=== PATIENT | male | born 1945 | race African-American/Black ===

== ENCOUNTER → 2017-12-08 | Outpatient (CLI) | payer MEDICARE, OTHER ==
--- NOTE | 2017-12-08 10:49 | RADIOLOGY REPORT (SQ) ---
EXAM DESCRIPTION: U/S RETROPERITON (RENAL/AORTA) COMPLETED DATE/TIME: 12/08/2017 9:14 am REASON FOR STUDY: CKD N18.9 CHRONIC KIDNEY DISEASE, UNSPECIFIED COMPARISON: None. TECHNIQUE: Dynamic and static grayscale images acquired of the kidneys and bladder and recorded on P ACS. Additional selected color Doppler and spectral images recorded. LIMITATIONS: None. FINDINGS: RIGHT KIDNEY: 8.5 cm in length, smaller compared to the left. No evidence of stones or ma sses, however. No hydronephrosis. LEFT KIDNEY: 10.3 cm. No evidence of stones or mass. No hydronephrosis. BLADDER: No evidence of mass or stones. OTHER FINDINGS: Prostate enlarged, 5 x 5 x 3 cm. IMPRESSION: Prostate enlargement. No renal mass or obstruction. TECHNICAL DOCUMENTATION: JOB ID: [id number] [employer]- All Rights Reserved Reading location - IP/workstation name: [email or web address]
== END ==
LOC: RAD 08:41
PROVIDERS: ATTEND Family Medicine
DX: N18.9 Chronic kidney disease, unspecified (principal); N40.0 Benign prostatic hyperplasia without lower urinary tract symptoms
CPT/HCPCS: 76770

== ENCOUNTER → 2018-03-01 | Outpatient (CLI) | payer MEDICARE, OTHER ==
[2018-03-01 11:44] LABS: HEMATOCRIT 39.3 % (37.9-51.0); HEMOGLOBIN 13.1 g/dL (13.5-17.0); MEAN CORPUSCULAR HEMOGLOBIN 30.3 pg (27.0-33.4); MEAN CORPUSCULAR HGB CONC 33.2 g/dL (32.0-36.0); MEAN CORPUSCULAR VOLUME 91 fl (80-97); PLATELET COUNT 269 10^3/uL (150-450); RED BLOOD COUNT 4.32 10^6/uL (4.35-5.55); RED CELL DISTRIBUTION WIDTH 12.8 % (11.5-14.0); WHITE BLOOD COUNT 4.3 10^3/uL (4.0-10.5)
[2018-03-01 12:03] LABS: ANION GAP 13 (5-19); BLOOD UREA NITROGEN 21 mg/dL (7-20); CALCIUM 10.5 mg/dL (8.4-10.2); CARBON DIOXIDE 25 mmol/L (22-30); CHLORIDE 106 mmol/L (98-107); GLUCOSE 119 mg/dL (75-110); POTASSIUM 4.7 mmol/L (3.6-5.0); SODIUM 144.1 mmol/L (137-145)
[2018-03-01 15:59] LABS: APPEARANCE,URINE CLEAR; BILIRUBIN,URINE NEGATIVE (NEGATIVE); COLOR,URINE YELLOW; GLUCOSE, URINE NEGATIVE (NEGATIVE); KETONES,URINE NEGATIVE (NEGATIVE); LEUKOCYTE ESTERASE,URINE NEGATIVE (NEGATIVE); NITRITE,URINE NEGATIVE (NEGATIVE); PROTEIN,URINE NEGATIVE (NEGATIVE); URINE SPECIFIC GRAVITY 1.017; UROBILINOGEN,URINE NEGATIVE mg/dL (<2.0)
[2018-03-01 16:04] LABS: IRON(TIBC) 49.9 ug/dL (49-181)
== END ==
LOC: OD 11:06
PROVIDERS: ATTEND Internal Medicine Nephrology
DX: N18.3 Chronic kidney disease, stage 3 (moderate) (principal); I12.9 Hypertensive chronic kidney disease with stage 1 through stage 4 chronic kidney disease, or unspecified chronic kidney disease; D64.9 Anemia, unspecified
CPT/HCPCS: 36415; 80048; 81001; 82728; 83540; 83550; 85027

== ENCOUNTER → 2018-04-28 | Outpatient (CLI) | payer MEDICARE, OTHER ==
[2018-04-28 13:08] LABS: ANION GAP 9 (5-19); BLOOD UREA NITROGEN 21 mg/dL (7-20); CALCIUM 10.1 mg/dL (8.4-10.2); CARBON DIOXIDE 29 mmol/L (22-30); CHLORIDE 104 mmol/L (98-107); GLUCOSE 120 mg/dL (75-110); SODIUM 141.5 mmol/L (137-145)
== END ==
LOC: OD 11:22
PROVIDERS: ATTEND Internal Medicine Nephrology
DX: I12.9 Hypertensive chronic kidney disease with stage 1 through stage 4 chronic kidney disease, or unspecified chronic kidney disease (principal); N18.3 Chronic kidney disease, stage 3 (moderate)
CPT/HCPCS: 36415; 80048

== ENCOUNTER → 2018-05-04 | Outpatient (CLI) | payer MEDICARE, OTHER ==
--- NOTE | 2018-05-04 13:12 | RADIOLOGY REPORT (SQ) ---
EXAM DESCRIPTION: MRA ABDOMEN WITHOUT COMPLETED DATE/TIME: 05/04/2018 10:41 am REASON FOR STUDY: N18.3 CHRONIC KIDNEY DISEASE, STAGE 3 (MODERATE)/Q63.8 OTHER SPECIFIED MAEVE N18.3 CHRONIC KIDNEY DISEASE, STAGE 3 (MODERATE) COMPARISON: None. TECHNIQUE: Coronal and Axial imaging with T1 and T2 weighting through the kidneys. 3-D MIPs performe d at the work station. CONTRAST TYPE AND DOSE: Noncontrast study. RENAL FUNCTION: Not applicable. LIMITATIONS: None. FINDINGS: KIDNEYS: Kidneys are of normal size and functionality. OTHER ABDOMINAL ORGANS: No significant finding. BONY STRUCTURES: No significant finding as visualized. VASCULAR STRUCTURES: No significant finding. RIGHT RENAL ARTERY: A single renal artery. Normal without evidence for stenosis. LEFT RENAL ARTERY: A single renal artery. Normal without evidence for stenosis. AORTA, SMA, AND CELIAC AXIS: No significant finding or stenosis. OTHER: No other significant finding. IMPRESSION: NORMAL RIGHT AND LEFT RENAL ARTERIES. TECHNICAL DOCUMENTATION: JOB ID: [id number] [employer]- All Rights Reserved Reading location - IP/workstation name: [email or web address]
== END ==
LOC: RAD 09:59
PROVIDERS: ATTEND Internal Medicine Nephrology
DX: N18.3 Chronic kidney disease, stage 3 (moderate) (principal); Q63.8 Other specified congenital malformations of kidney
CPT/HCPCS: C8901

== ENCOUNTER → 2018-11-29 | Outpatient (CLI) | payer MEDICARE, OTHER ==
[2018-11-29 10:58] LABS: HEMATOCRIT 39.7 % (37.9-51.0); MEAN CORPUSCULAR HEMOGLOBIN 29.7 pg (27.0-33.4); MEAN CORPUSCULAR HGB CONC 32.6 g/dL (32.0-36.0); MEAN CORPUSCULAR VOLUME 91 fl (80-97); PLATELET COUNT 235 10^3/uL (150-450); RED BLOOD COUNT 4.36 10^6/uL (4.35-5.55); RED CELL DISTRIBUTION WIDTH 12.8 % (11.5-14.0)
[2018-11-29 11:16] LABS: ANION GAP 7 (5-19); BLOOD UREA NITROGEN 17 mg/dL (7-20); CALCIUM 9.9 mg/dL (8.4-10.2); CARBON DIOXIDE 28 mmol/L (22-30); CHLORIDE 105 mmol/L (98-107); GLUCOSE 104 mg/dL (75-110); POTASSIUM 4.6 mmol/L (3.6-5.0)
[2018-11-29 12:24] LABS: APPEARANCE,URINE SLIGHTLY-CLOUDY; BILIRUBIN,URINE NEGATIVE (NEGATIVE); COLOR,URINE YELLOW; GLUCOSE, URINE NEGATIVE (NEGATIVE); KETONES,URINE NEGATIVE (NEGATIVE); LEUKOCYTE ESTERASE,URINE NEGATIVE (NEGATIVE); NITRITE,URINE NEGATIVE (NEGATIVE); PROTEIN,URINE NEGATIVE (NEGATIVE); URINE SPECIFIC GRAVITY 1.017; UROBILINOGEN,URINE NEGATIVE mg/dL (<2.0)
== END ==
LOC: OD 09:59
PROVIDERS: ATTEND Internal Medicine Nephrology
DX: I12.9 Hypertensive chronic kidney disease with stage 1 through stage 4 chronic kidney disease, or unspecified chronic kidney disease (principal); N18.3 Chronic kidney disease, stage 3 (moderate)
CPT/HCPCS: 36415; 80048; 81001; 85027

== ENCOUNTER → 2019-05-23 | Outpatient (CLI) | payer MEDICARE, OTHER ==
[2019-05-23 12:00] LABS: ABSOLUTE EOSINOPHILS # (AUTO) 0.1 10^3/uL (0.0-0.6); ABSOLUTE LYMPHOCYTES (AUTO) 1.5 10^3/uL (0.5-4.7); ABSOLUTE MONOCYTES (AUTO) 0.5 10^3/uL (0.1-1.4); ABSOLUTE NEUT (AUTO) 2.2 10^3/uL (1.7-8.2); BASOPHILS % (AUTO) 0.9 % (0-2); EOSINOPHILS % (AUTO) 2.3 % (0-6); HEMATOCRIT 38.7 % (37.9-51.0); HEMOGLOBIN 12.9 g/dL (13.5-17.0); LYMPHOCYTES % (AUTO) 34.6 % (13-45); MEAN CORPUSCULAR HEMOGLOBIN 30.6 pg (27.0-33.4); MEAN CORPUSCULAR HGB CONC 33.4 g/dL (32.0-36.0); MEAN CORPUSCULAR VOLUME 92 fl (80-97); MONOCYTES % (AUTO) 11.4 % (3-13); PLATELET COUNT 255 10^3/uL (150-450); RED BLOOD COUNT 4.22 10^6/uL (4.35-5.55); RED CELL DISTRIBUTION WIDTH 12.9 % (11.5-14.0); SEGMENTED NEUTROPHILS % (AUTO) 50.8 % (42-78); TOTAL CELLS COUNTED % (AUTO) 100 %; WHITE BLOOD COUNT 4.4 10^3/uL (4.0-10.5)
[2019-05-23 12:19] LABS: ANION GAP 8 (5-19); BLOOD UREA NITROGEN 20 mg/dL (7-20); CALCIUM 9.9 mg/dL (8.4-10.2); CARBON DIOXIDE 26 mmol/L (22-30); CHLORIDE 108 mmol/L (98-107); GLUCOSE 81 mg/dL (75-110)
[2019-05-23 12:35] LABS: APPEARANCE,URINE CLEAR; BILIRUBIN,URINE NEGATIVE (NEGATIVE); COLOR,URINE YELLOW; GLUCOSE, URINE NEGATIVE (NEGATIVE); KETONES,URINE NEGATIVE (NEGATIVE); LEUKOCYTE ESTERASE,URINE NEGATIVE (NEGATIVE); NITRITE,URINE NEGATIVE (NEGATIVE); PROTEIN,URINE NEGATIVE (NEGATIVE); URINE SPECIFIC GRAVITY 1.021; UROBILINOGEN,URINE NEGATIVE mg/dL (<2.0)
== END ==
LOC: OD 11:16
PROVIDERS: ATTEND Internal Medicine Nephrology
DX: I12.9 Hypertensive chronic kidney disease with stage 1 through stage 4 chronic kidney disease, or unspecified chronic kidney disease (principal); N18.3 Chronic kidney disease, stage 3 (moderate); N26.1 Atrophy of kidney (terminal)
CPT/HCPCS: 36415; 80048; 81001; 85025

== ENCOUNTER → 2019-08-30 | Outpatient (CLI) | payer MEDICARE, OTHER ==
--- NOTE | 2019-08-30 12:20 | RADIOLOGY REPORT (SQ) ---
EXAM DESCRIPTION: KNEE RIGHT 4 VIEWS IMAGES COMPLETED DATE/TIME: 08/30/2019 10:14 am REASON FOR STUDY: ACUTE PAIN OF RT KNEE M25.561 PAIN IN RIGHT KNEE COMPARISON: None. NUMBER OF VIEWS: Four views. TECHNIQUE: AP, lateral, and both oblique radiographic images acquired of the right knee. LIMITATIONS: Evaluation for joint space loss is limited due to nonweightbearing technique. FINDINGS: MINERALIZATION: Normal. BONES: No acute fracture or dislocation. 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 SOFT TISSUES: Focal soft tissue swelling over the tibial tuberosity. The quadriceps and patellar ten don silhouettes are intact. OTHER: No other finding. IMPRESSION: 1. Focal soft tissue swelling over the tibial tuberosity. There is no associated osseou s abnormality. The quadriceps and patellar tendon silhouettes are intact. 2. Tricompartmental osteoarthrosis. TECHNICAL DOCUMENTATION: JOB ID: [id number] 2010 [employer]- All Rights Reserved Reading location - IP/workstation name: [email or web address]
== END ==
LOC: OD 09:44
PROVIDERS: ATTEND Family Medicine
DX: M17.11 Unilateral primary osteoarthritis, right knee (principal); M25.561 Pain in right knee

== ENCOUNTER 2020-02-12 14:21 | Inpatient (IN) | payer MEDICARE, OTHER ==
[2020-02-12] MEDS ORDERED: BENZONATATE 100 MG CAPSULE PO ONE (17:00)
[2020-02-12] MEDS ORDERED: IPRATROPIUM/ALBUTEROL 0.5-2.5 MG/3 ML AMPUL NEB ONE (17:00)
--- NOTE | 2020-02-12 17:27 | ER Document Report ---
ED Respiratory Problem - General Chief Complaint: Cough Stated Complaint: WEAKNESS/DRY COUGH Time Seen by Provider: 02/12/20 16:31 Primary Care Provider: JOSEPH LEMONS MD [Primary Care Provider] - Follow up as needed Notes: Patient is a 74-year-old male who presents emergency department with a chief complaint dry cough and shortness of breath. Patient was diagnosed with COVID- 19 3 days ago. Patient states that he started to have symptoms about 4 days ago. TRAVEL OUTSIDE OF THE [place] IN LAST 30 DAYS: No - Related Data Allergies/Adverse Reactions: No Known Allergies Allergy (Unverified 02/12/20 14:43) Home Medications: Celebrex, Omeprazole, Aspirin, Tamsulosin, Atorvastatin, HCTZ Past Medical History - Social History Smoking Status: Never Smoker Family History: Reviewed & Not Pertinent - Past Medical History Cardiac Medical History: Reports: Hx Hypertension Review of Systems - Review of Systems Notes: REVIEW OF SYSTEMS: CONSTITUTIONAL : Denies recent illness. Denies recent unintentional weight loss. Denies fever, chills, or sweats. EENT: Denies eye, ear, throat, or mouth pain, discharge, or symptoms. Denies nasal or sinus congestion. CARDIOVASCULAR: Denies chest pain. RESPIRATORY: See HPI. GASTROINTESTINAL: Denies nausea, vomiting, and diarrhea. Denies abdominal pain. Denies constipation. GENITOURINARY: Denies difficulty urinating, burning, blood in urine, urgency or frequency. MUSCULOSKELETAL: Denies neck and back pain. Denies joint pain or swelling. SKIN: Denies rash, itchiness, or lesions HEMATOLOGIC : Denies easy bruising or bleeding. LYMPHATIC: Denies swollen, painful, enlarged glands. NEUROLOGICAL: Denies no numbness or tingling denies weakness. Denies headache. Denies altered mental status. Denies alteration in speech. PSYCHIATRIC: Denies stress, anxiety, alteration in sleep patterns, or depression. All other systems reviewed and negative. Physical Exam - Vital signs Vitals: Temp Pulse Resp BP Pulse Ox 98.3 F 98 20 144/80 H 98 02/12/20 14:42 02/12/20 14:42 02/12/20 14:42 02/12/20 14:42 02/12/20 14:42 - Notes Notes: PHYSICAL EXAMINATION: GENERAL: Appears well, healthy, well-nourished, no acute distress. HEAD: Normocephalic, atraumatic. EYES: PERRL, conjunctiva normal, all extraocular movements intact, sclera non icteric ENT: Moist mucous membranes. NECK: Supple, no noticeable swelling, redness, rash. Normal range of motion. LUNGS: Diminished breath sounds throughout lung coppola CARDIOVASCULAR: S1-S2, tachycardic, regular rhythm. Radial pulses 2+, normal. ABDOMEN: Normoactive bowel sounds. Soft, nontender, no guarding, no rebound tenderness, and no masses palpated. EXTREMITIES: Normal strength and range of motion, no pitting or edema. No cyanosis. NEUROLOGICAL: Moves all extremities upon command. Strength 5/5 in all extremities. PSYCH: Normal mood, normal affect. SKIN: Warm, dry. No rash, lesions, ulcerations noted. Normal skin turgor. Course - Re-evaluation Re-evalutation: 02/12/20 19:17 Hematology is unremarkable. Blood gas shows a PO2 77.9 on room air. Sodium was 134. Potassium 5.7. Patient received a liter of IV fluids. His creatinine is 1.79, but this is his normal. I attempted to walk the patient and his heart rate went up to the 120s. This is after receiving a liter bolus of IV fluids. 02/12/20 19:[address] Lemons for possible admission. He states that he would like the patient to go home with doxycycline 100 mg twice daily, Decadron 3 mg 2 times daily. 02/12/20 19:52 Dr. Lemons called me back and I spoke with the patient again. At this time, the patient will be admitted to [facility]. Dr. Lemons would like a VQ scan CT ordered. - Vital Signs Vital signs: Temp Pulse Resp BP Pulse Ox 98.3 F 98 28 H 144/80 H 94 02/12/20 14:42 02/12/20 14:42 02/12/20 18:06 02/12/20 14:42 02/12/20 18:06 - Laboratory Result Diagrams: 02/12/20 15:19 02/12/20 15:19 Laboratory results interpreted by me: 02/12/20 02/12/20 02/12/20 15:19 15:19 18:01 Hgb 13.2 L Lymph % (Auto) 11.2 L Barber % (Auto) 13.2 H ABG pO2 77.9 L ABG Total CO2 21.9 L Sodium 134.2 L Potassium 5.7 H BUN 59 H Creatinine 1.79 H Est GFR ( Amer) 45 L Est GFR (MDRD) Non-Af 37 L AST 72 H ALT 69 H Discharge - Discharge Clinical Impression: Cough, COVID-19, Shortness of breath Condition: Stable Disposition: ADMITTED INPATIENT Admitting Provider: Nathan Unit Admitted: IMCU Instructions: COVID-19 Guidance for Persons Under Investigation Referrals: JOSEPH LEMONS MD [Primary Care Provider] - Follow up as needed
--- NOTE | 2020-02-12 17:37 | RADIOLOGY REPORT (SQ) ---
EXAM DESCRIPTION: CHEST SINGLE VIEW IMAGES COMPLETED DATE/TIME: 02/12/2020 5:25 pm REASON FOR STUDY: cough; covid positive COMPARISON: 2014 EXAM PARAMETERS: NUMBER OF VIEWS: One view. TECHNIQUE: Single frontal radiographic view of the chest acquired. RADIATION DOSE: NA LIMITATIONS: None. FINDINGS: LUNGS AND PLEURA: Faintly defined opacification in the left lower lung field. MEDIASTINUM AND HILAR STRUCTURES: No masses. Contour normal. HEART AND VASCULAR STRUCTURES: Heart normal in size. Normal vasculature. BONES: No acute findings. HARDWARE: None in the chest. OTHER: No other significant finding. IMPRESSION: Limited left lower lobe pneumonia. TECHNICAL DOCUMENTATION: JOB ID: [id number] 2010 [employer]- All Rights Reserved Reading location - IP/workstation name: [email or web address]
[2020-02-12 18:24] LABS: ARTERIAL BLOOD BASE EXCESS -3.8 mmol/L; ARTERIAL BLOOD H2CO3 1.09 mmol/L (1.05-1.35); ARTERIAL BLOOD HCO3 20.8 mmol/L (20-24); ARTERIAL BLOOD O2 SATURATION 95.3 % (94-98); ARTERIAL BLOOD PCO2 36.3 mmHg (35-45); ARTERIAL BLOOD PH 7.38 (7.35-7.45); ARTERIAL BLOOD PO2 77.9 mmHg (80-100); ARTERIAL BLOOD TOTAL CO2 21.9 mmol/L (23-27)
[2020-02-12 18:25] LABS: ARTERIAL BLOOD FIO2 2L
[2020-02-12 18:29] LABS: ABSOLUTE LYMPHOCYTES (AUTO) 0.6 10^3/uL (0.5-4.7); ABSOLUTE MONOCYTES (AUTO) 0.7 10^3/uL (0.1-1.4); ABSOLUTE NEUT (AUTO) 3.8 10^3/uL (1.7-8.2); BASOPHILS % (AUTO) 0.4 % (0-2); HEMATOCRIT 39.5 % (37.9-51.0); HEMOGLOBIN 13.2 g/dL (13.5-17.0); LYMPHOCYTES % (AUTO) 11.2 % (13-45); MEAN CORPUSCULAR HEMOGLOBIN 30.4 pg (27.0-33.4); MEAN CORPUSCULAR HGB CONC 33.5 g/dL (32.0-36.0); MEAN CORPUSCULAR VOLUME 91 fl (80-97); MONOCYTES % (AUTO) 13.2 % (3-13); PLATELET COUNT 244 10^3/uL (150-450); RED BLOOD COUNT 4.35 10^6/uL (4.35-5.55); RED CELL DISTRIBUTION WIDTH 12.5 % (11.5-14.0); SEGMENTED NEUTROPHILS % (AUTO) 75.2 % (42-78); TOTAL CELLS COUNTED % (AUTO) 100 %; WHITE BLOOD COUNT 5.1 10^3/uL (4.0-10.5)
[2020-02-12 18:33] LABS: ALBUMIN 3.9 g/dL (3.5-5.0); ALKALINE PHOSPHATASE 71 U/L (38-126); ANION GAP 12 (5-19); ASPARTATE AMINO TRANSFERASE 72 U/L (17-59); BILIRUBIN,DIRECT 0.4 mg/dL (0.0-0.4); BILIRUBIN,TOTAL 0.9 mg/dL (0.2-1.3); BLOOD UREA NITROGEN 59 mg/dL (7-20); CALCIUM 9.7 mg/dL (8.4-10.2); CARBON DIOXIDE 22 mmol/L (22-30); CHLORIDE 100 mmol/L (98-107); GLUCOSE 108 mg/dL (75-110); POTASSIUM 5.7 mmol/L (3.6-5.0); TOTAL PROTEIN 7.4 g/dL (6.3-8.2)
[2020-02-12] MEDS ORDERED: ACETAMINOPHEN 325 MG TABLET PO ONE (19:20)
[2020-02-12] MEDS ORDERED: METHYLPREDNISOLONE INJ 125 MG/2 ML SDV IV ONE (19:28)
[2020-02-12] MEDS ORDERED: DOXYCYCLINE HYCLATE 100 MG TABLET PO ONE (19:29)
[2020-02-12] MEDS ORDERED: ALBUTEROL SULFATE HFA (90 MCG/PUFF) 8 GM MDI (1 MDI/ER DISP) IH PRN ×2 (19:35→20:03)
[2020-02-12] MEDS ORDERED: NORMAL SALINE 1000 ML 1,000 ML IV PRN (19:51)
[2020-02-12] MEDS ORDERED: IPRATROPIUM/ALBUTEROL 0.5-2.5 MG/3 ML AMPUL NEB PRN (19:51)
[2020-02-12] MEDS ORDERED: ACETAMINOPHEN 325 MG TABLET PO PRN (19:51)
[2020-02-12] MEDS ORDERED: ALBUTEROL SULFATE HFA (90 MCG/PUFF) 8 GM MDI IH PRN (20:07)
[2020-02-12 20:20] LABS: FIBRINOGEN 766 mg/dL (209-497); INTERNATIONAL RATION (INR) 1.07; PROTHROMBIN TIME 14.1 SEC (11.4-15.4)
[2020-02-12 20:23] LABS: D-DIMER 3.07 ug/mL (0.00-0.50)
[2020-02-12 20:33] LABS: C-REACTIVE PROTEIN 64.2 mg/L (<10.0)
[2020-02-12 21:43] LABS: ANION GAP 15 (5-19); BLOOD UREA NITROGEN 51 mg/dL (7-20); CALCIUM 9.6 mg/dL (8.4-10.2); CARBON DIOXIDE 19 mmol/L (22-30); CHLORIDE 102 mmol/L (98-107); GLUCOSE 104 mg/dL (75-110); POTASSIUM 4.9 mmol/L (3.6-5.0)
--- NOTE | 2020-02-12 22:14 | RADIOLOGY REPORT (SQ) ---
CLINICAL INDICATION: Shortness of breath. . TECHNIQUE: Noncontrast spiral axial CT imaging was obtained of the chest with multiplanar reconstructions. This exam was performed according to our departmental dose-optimization program, which includes automated exposure control, adjustment of the mA and/or kV according to patient size and/or use of iterative reconstruction techniques. COMPARISON: None. CORRELATION: Chest radiography earlier today. FINDINGS: The heart is prominent with coronary calcification. No pericardial effusion. No bulky mediastinal adenopathy. Descending thoracic aorta is top normal at 4 cm The lungs definite patchy areas of interstitial alveolar space disease bilaterally predominantly in a subpleural distribution. No effusion. No pneumothorax.. Visualized abdominal contents demonstrate hepatic steatosis. Visualized bones are unremarkable. IMPRESSION: Patchy areas of interstitial alveolar space disease bilaterally, presumed infectious inflammatory. Imaging features can be seen with COVID pneumonia, though are nonspecific and can occur with a variety of infectious and noninfectious processes. [PneInd].
[2020-02-12 22:18] LABS: A TYPE INFLUENZA AG NEGATIVE (NEGATIVE); B INFLUENZA AG NEGATIVE (NEGATIVE)
[2020-02-12] MEDS: DEXAMETHASONE SOD PHOSPHATE INJ 4 MG/1 ML VIAL IV SCH (22:48)
[2020-02-12] MEDS: HEPARIN SOD (PORCINE) 5,000 UNIT/ML 1 ML VIAL SUBCUT SCH (22:48)
[2020-02-12] MEDS: CEFEPIME 1 GM/D5W RTU 1 GM/50 ML RTUPB IV SCH (22:49)
[2020-02-12] MEDS: ATORVASTATIN CALCIUM 20 MG TABLET PO SCH (22:51)
[2020-02-13 05:37] LABS: ABSOLUTE LYMPHOCYTES (AUTO) 0.4 10^3/uL (0.5-4.7); ABSOLUTE MONOCYTES (AUTO) 0.2 10^3/uL (0.1-1.4); ABSOLUTE NEUT (AUTO) 2.8 10^3/uL (1.7-8.2); BASOPHILS % (AUTO) 0.1 % (0-2); HEMATOCRIT 39.6 % (37.9-51.0); LYMPHOCYTES % (AUTO) 11.3 % (13-45); MEAN CORPUSCULAR HEMOGLOBIN 29.8 pg (27.0-33.4); MEAN CORPUSCULAR HGB CONC 32.9 g/dL (32.0-36.0); MEAN CORPUSCULAR VOLUME 91 fl (80-97); MONOCYTES % (AUTO) 7.1 % (3-13); PLATELET COUNT 250 10^3/uL (150-450); RED BLOOD COUNT 4.37 10^6/uL (4.35-5.55); RED CELL DISTRIBUTION WIDTH 12.8 % (11.5-14.0); SEGMENTED NEUTROPHILS % (AUTO) 81.5 % (42-78); TOTAL CELLS COUNTED % (AUTO) 100 %; WHITE BLOOD COUNT 3.4 10^3/uL (4.0-10.5)
[2020-02-13] MEDS: LATANOPROST 0.005% OPH SOLN 2.5 ML OP SCH ×2 (05:40→21:35)
[2020-02-13] MEDS: HEPARIN SOD (PORCINE) 5,000 UNIT/ML 1 ML VIAL SUBCUT SCH ×3 (05:43→21:33)
[2020-02-13] MEDS: PANTOPRAZOLE SODIUM 40 MG TABLET.DR PO SCH (05:43)
--- NOTE | 2020-02-13 07:25 | EKG REPORT ---
SEVERITY:- BORDERLINE ECG - SINUS RHYTHM BORDERLINE T ABNORMALITIES, ANT-LAT LEADS : Confirmed by: Vickey Simmons MD 13-Feb-2020 07:25:12
[2020-02-13] MEDS ORDERED: NORMAL SALINE 1000 ML 1,000 ML IV PRN (08:45)
--- NOTE | 2020-02-13 09:01 | PDOC H&P ---
History of Present Illness Admission Date/PCP: 02/12/20 20:04 JOSEPH LEMONS MD Patient complains of: Weakness and COVID-19 History of Present Illness: NERY DUENAS is a 74 year old male Is a 74-year-old male recently diagnosed with COVID-19 3 days back noticed p rogressively increase the more weakness and increasing more cough and shortness of the breath patient is brought to the emergency department by ambulance In the ER patient chest x-ray consistent with a pneumonia CT scan of the chest confirmed with the Covid pneumonia and patient PO2 was 77.9 and the patient at this point put on oxygen and admitting in the hospital Patient received the steroid and IV antibiotic When I saw the patient in the Covid floor patient is feeling much better patient's denied any chest pain no shortness of the breath Still having some cough Patient denied any fever no chills Patient all inflammatory marker is elevated Past Medical History Cardiac Medical History: Reports: Hypertension Endocrine History Note: Impaired fasting glucose with last A1c is 5.5 Renal/ Medical History: Reports: Chronic Kidney Disease Psychiatric Medical History: Denies: Depression Social History Information Source: Patient Smoking Status: Former Smoker Electronic Cigarette use?: No Frequency of Alcohol Use: None Hx Recreational Drug Use: No Hx Prescription Drug Abuse: No Family History Family History: Reviewed & Not Pertinent Parental Family History Reviewed: Yes Children Family History Reviewed: Yes Sibling(s) Family History Reviewed.: Yes Medication/Allergy Home Medications: Aspirin [Ecotrin 81 mg EC Tablet] 81 mg PO DAILY 02/12/20 Atorvastatin Calcium [Lipitor 20 mg Tablet] 20 mg PO QHS 02/12/20 Celecoxib [Celebrex 200 mg Capsule] 200 mg PO DAILYP PRN 02/12/20 Cetirizine HCl [Zyrtec 10 mg Tablet] 10 mg PO DAILY 02/12/20 Dorzolamide HCl/Timolol Maleat [Cosopt Oph Soln 10 Ml Bottle] 1 drop OU BID 02/12/20 Latanoprost [Xalatan 0.005% Oph Soln 2.5 ml] 1 drop OS QHS 02/12/20 Omeprazole 20 mg PO DAILY 02/12/20 Polyvinyl Alcohol/Povidone/Pf [Refresh Classic Eye Drops] 1 drop OU BID 02/12/20 Tamsulosin HCl [Flomax 0.4 mg Cap.sr] 0.4 mg PO DAILY 02/12/20 Allergies/Adverse Reactions: No Known Allergies Allergy (Unverified 02/12/20 14:43) Review of Systems Constitutional: ABSENT: chills, fever(s), headache(s), weight gain, weight loss Eyes: ABSENT: visual disturbances Ears: ABSENT: hearing changes Cardiovascular: PRESENT: dyspnea on exertion. ABSENT: chest pain, edema, orthropnea, palpitations Respiratory: PRESENT: cough, dyspnea. ABSENT: hemoptysis Gastrointestinal: ABSENT: abdominal pain, constipation, diarrhea, hematemesis, hematochezia, nausea, vomiting Genitourinary: ABSENT: dysuria, hematuria Musculoskeletal: ABSENT: joint swelling Integumentary: ABSENT: rash, wounds Neurological: ABSENT: abnormal gait, abnormal speech, confusion, dizziness, focal weakness, syncope Psychiatric: ABSENT: anxiety, depression, homidical ideation, suicidal ideation Endocrine: ABSENT: cold intolerance, heat intolerance, menstrual abnormalities, polydipsia, polyuria Hematologic/Lymphatic: ABSENT: easy bleeding, easy bruising, lymphadenopathy Physical Exam Vital Signs: Temp Pulse Resp BP Pulse Ox 98.2 F 74 22 H 142/81 H 99 02/13/20 07:36 02/13/20 07:00 02/13/20 04:20 02/13/20 04:20 02/13/20 04:20 Intake & Output 02/12/20 02/13/20 02/14/20 06:59 06:59 06:59 Intake Total 150 50 Output Total 425 Balance -275 50 Weight 73.6 kg General appearance: PRESENT: no acute distress, well-developed, well-nourished Head exam: PRESENT: atraumatic, normocephalic Eye exam: PRESENT: conjunctiva pink, EOMI, PERRLA. ABSENT: scleral icterus Ear exam: PRESENT: normal external ear exam Mouth exam: PRESENT: moist, tongue midline Neck exam: PRESENT: full ROM. ABSENT: carotid bruit, JVD, lymphadenopathy, thyromegaly Respiratory exam: PRESENT: clear to auscultation peng Cardiovascular exam: PRESENT: RRR. ABSENT: diastolic murmur, rubs, systolic murmur Pulses: PRESENT: normal dorsalis pedis pul, +2 pedal pulses bilateral Vascular exam: PRESENT: normal capillary refill GI/Abdominal exam: PRESENT: normal bowel sounds, soft. ABSENT: distended, guarding, mass, organolmegaly, rebound, tenderness Rectal exam: PRESENT: deferred Musculoskeletal exam: PRESENT: ambulatory Neurological exam: PRESENT: alert, awake, oriented to person, oriented to place, oriented to time, oriented to situation, CN II-XII grossly intact. ABSENT: motor sensory deficit Psychiatric exam: PRESENT: appropriate affect, normal mood. ABSENT: homicidal ideation, suicidal ideation Skin exam: PRESENT: dry, intact, warm. ABSENT: cyanosis, rash Results Laboratory Results: 02/13/20 05:02 02/12/20 20:45 02/12/20 02/12/20 02/12/20 15:19 15:19 15:19 WBC 5.1 RBC 4.35 Hgb 13.2 L Hct 39.5 MCV 91 MCH 30.4 MCHC 33.5 RDW 12.5 Plt Count 244 Seg Neutrophils % 75.2 Carbonic Acid HCO3/H2CO3 Ratio ABG pH ABG pCO2 ABG pO2 ABG HCO3 ABG O2 Saturation ABG Base Excess FiO2 Sodium 134.2 L Potassium 5.7 H Chloride 100 Carbon Dioxide 22 Anion Gap 12 BUN 59 H Creatinine 1.79 H Est GFR ( Amer) 45 L Glucose 108 Calcium 9.7 Ferritin 1600.00 H Total Bilirubin 0.9 AST 72 H Alkaline Phosphatase 71 C-Reactive Protein 64.2 H Total Protein 7.4 Albumin 3.9 02/12/20 02/12/20 02/13/20 18:01 20:45 05:02 WBC 3.4 L RBC 4.37 Hgb 13.0 L Hct 39.6 MCV 91 MCH 29.8 MCHC 32.9 RDW 12.8 Plt Count 250 Seg Neutrophils % 81.5 H Carbonic Acid 1.09 HCO3/H2CO3 Ratio 19:1 ABG pH 7.38 ABG pCO2 36.3 ABG pO2 77.9 L ABG HCO3 20.8 ABG O2 Saturation 95.3 ABG Base Excess -3.8 FiO2 2L Sodium 135.9 L Potassium 4.9 Chloride 102 Carbon Dioxide 19 L Anion Gap 15 BUN 51 H Creatinine 1.67 H Est GFR ( Amer) 49 L Glucose 104 Calcium 9.6 Ferritin Total Bilirubin AST Alkaline Phosphatase C-Reactive Protein Total Protein Albumin Impressions: Chest X-Ray 02/12/20 17:00 IMPRESSION: Limited left lower lobe pneumonia. Chest CT 02/12/20 19:54 IMPRESSION: Patchy areas of interstitial alveolar space disease bilaterally, presumed infectious inflammatory. Imaging features can be seen with COVID pneumonia, though are nonspecific and can occur with a variety of infectious and noninfectious processes. [PneInd]. Assessment & Plan - Diagnosis (1) Pneumonia due to 2019 novel coronavirus Is this a current diagnosis for this admission?: Yes Plan: Continues to Zithromax dexamethasone and antiviral drugs and oxygen supplements (2) COVID-19 Is this a current diagnosis for this admission?: Yes Plan: With acute pneumonia start the patient on IV antibiotics and dexamethasone 3 mg IV every 12 and antiviral drugs per protocol (3) Chronic kidney disease Qualifiers: Chronic kidney disease stage: stage 3 (moderate) Is this a current diagnosis for this admission?: Yes Plan: Currently all stable (4) Hypertension Qualifiers: Hypertension type: essential hypertension Qualified Code(s): I10 - Essential (primary) hypertension Is this a current diagnosis for this admission?: Yes Plan: Continues to current medications (5) Impaired fasting glucose Is this a current diagnosis for this admission?: Yes Plan: Last A1c was 5.5 we will checking the sliding scale while patient on a steroid (6) Cough Is this a current diagnosis for this admission?: Yes Plan: Continues to tessean peal (7) Shortness of breath Is this a current diagnosis for this admission?: Yes Plan: Supplement oxygen - Time Time Spent: 50 to 70 Minutes Medications reviewed and adjusted accordingly: Yes Anticipated Discharge Disposition: Home, Self Care Anticipated Discharge Timeframe: within 72 hours - Inpatient Certification Based on my medical assessment, after consideration of the patient's comorbidities, presenting symptoms, or acuity I expect that the services needed warrant INPATIENT care.: Yes I certify that my determination is in accordance with my understanding of Medicare's requirements for reasonable and necessary INPATIENT services [42 CFR 412.3e].: Yes Medical Necessity: Failure to Improve With Outpatient Therapy, Significant Comorbidiites Make Outpatient Treatment Too Risky, Need For IV Fluids, Need for IV Antibiotics Post Hospital Care: D/C Geriatric Nurse Practitioner Documentation - Plan Summary Plan Summary: Admit the patient in IMCU see MD orders patient is currently hemodynamically stable
[2020-02-13] MEDS: DEXAMETHASONE SOD PHOSPHATE INJ 4 MG/1 ML VIAL IV SCH ×2 (09:48→21:34)
[2020-02-13] MEDS: CETIRIZINE 10 MG TABLET PO SCH (09:49)
[2020-02-13] MEDS: CEFEPIME 1 GM/D5W RTU 1 GM/50 ML RTUPB IV SCH ×2 (09:49→21:34)
[2020-02-13] MEDS: ASPIRIN 81 MG TABLET, ENT COATED PO SCH (09:49)
[2020-02-13] MEDS ORDERED: REMDESIVIR (EUA) 200 MG in NORMAL SALINE 250 ML IV ONE (11:00)
--- NOTE | 2020-02-13 12:38 | RADIOLOGY REPORT (SQ) ---
EXAM DESCRIPTION: NM LUNG PERFUSION SCAN IMAGES COMPLETED DATE/TIME: 02/13/2020 9:25 am REASON FOR STUDY: Shortness of breath COMPARISON: Chest x-ray dated 02/12/2020. RADIONUCLIDE AND DOSE: 5.45 millicuries TC-99m MAA The route of agent administration: Intravenous TECHNIQUE: Eight views of the lungs acquired following injection of MAA. LIMITATIONS: None. FINDINGS: PERFUSION: Perfusion images with normal homogenous activity and no wedge-shaped or segment al defects. OTHER: No other significant finding. IMPRESSION: NORMAL PERFUSION LUNG SCAN. TECHNICAL DOCUMENTATION: JOB ID: [id number] 2010 [employer]- All Rights Reserved Reading location - IP/workstation name: [email or web address]
[2020-02-13] MEDS ORDERED: AZITHROMYCIN 500 MG in DEXTROSE 5%-WATER 250 ML IV SCH (18:00)
[2020-02-13] MEDS: ATORVASTATIN CALCIUM 20 MG TABLET PO SCH (21:34)
[2020-02-14 05:47] LABS: HEMOGLOBIN 12.7 g/dL (13.5-17.0); MEAN CORPUSCULAR HGB CONC 33.4 g/dL (32.0-36.0); MEAN CORPUSCULAR VOLUME 90 fl (80-97); PLATELET COUNT 307 10^3/uL (150-450); RED BLOOD COUNT 4.22 10^6/uL (4.35-5.55); RED CELL DISTRIBUTION WIDTH 12.5 % (11.5-14.0)
[2020-02-14] MEDS: HEPARIN SOD (PORCINE) 5,000 UNIT/ML 1 ML VIAL SUBCUT SCH ×3 (05:56→21:46)
[2020-02-14] MEDS: PANTOPRAZOLE SODIUM 40 MG TABLET.DR PO SCH (05:56)
[2020-02-14 05:58] LABS: ANION GAP 13 (5-19); BLOOD UREA NITROGEN 45 mg/dL (7-20); CALCIUM 10.1 mg/dL (8.4-10.2); CARBON DIOXIDE 20 mmol/L (22-30); CHLORIDE 103 mmol/L (98-107); GLUCOSE 135 mg/dL (75-110); POTASSIUM 5.5 mmol/L (3.6-5.0)
[2020-02-14 06:17] LABS: ABSOLUTE LYMPHOCYTES# (MANUAL) 0.1 10^3/uL (0.5-4.7); ABSOLUTE MONOCYTES # (MANUAL) 0.6 10^3/uL (0.1-1.4); BAND NEUTROPHILS % (MANUAL) 1 % (3-5); BASOPHILS % (MANUAL) 0 % (0-2); EOSINOPHILS % (MANUAL) 0 % (0-6); LYMPHOCYTES % (MANUAL) 1 % (13-45); MONOCYTES % (MANUAL) 5 % (3-13); SEGMENTED NEUTROPHILS % (MAN) 93 % (42-78); TOTAL CELLS COUNTED 100
[2020-02-14 06:19] LABS: OVALOCYTES SLIGHT; POIKILOCYTOSIS SLIGHT; TOXIC GRANULATION 1+
[2020-02-14 06:20] LABS: PLATELET COMMENT ADEQUATE; SCHISTOCYTES SLIGHT; TEAR DROP CELLS SLIGHT; WHITE BLOOD COUNT 12.4 10^3/uL (4.0-10.5)
[2020-02-14] MEDS: DEXAMETHASONE SOD PHOSPHATE INJ 4 MG/1 ML VIAL IV SCH ×2 (09:42→21:46)
[2020-02-14] MEDS: CETIRIZINE 10 MG TABLET PO SCH (09:42)
[2020-02-14] MEDS: CEFEPIME 1 GM/D5W RTU 1 GM/50 ML RTUPB IV SCH ×2 (09:42→21:45)
[2020-02-14] MEDS: ASPIRIN 81 MG TABLET, ENT COATED PO SCH (09:42)
[2020-02-14] MEDS ORDERED: NORMAL SALINE 1000 ML 1,000 ML IV PRN (09:48)
--- NOTE | 2020-02-14 09:48 | PDOC PROGRESS REPORT ---
Subjective Progress Note for:: 02/14/20 Subjective:: Patient is currently doing fair still have a some cough and weakness She is denied any chest pain no short of breath Still on room air His white count is elevated most likely due to the steroid and potassium is still 5.5 Patient's VQ scan was negative yesterday Reason For Visit: COVID PNEUMONIA Physical Exam Vital Signs: Temp Pulse Resp BP Pulse Ox 97.7 F 70 18 117/74 93 02/14/20 04:09 02/14/20 07:25 02/14/20 07:25 02/14/20 07:25 02/14/20 07:25 Intake & Output 02/13/20 02/14/20 02/15/20 06:59 06:59 06:59 Intake Total 150 850 Output Total 425 400 Balance -275 450 Weight 73.6 kg 77.5 kg General appearance: PRESENT: no acute distress Eye exam: PRESENT: PERRLA Musculoskeletal exam: PRESENT: ambulatory Neurological exam: PRESENT: alert, awake, oriented to person, oriented to place, oriented to time, oriented to situation Psychiatric exam: PRESENT: appropriate affect Results Laboratory Results: 02/14/20 05:00 02/14/20 05:00 02/14/20 02/14/20 05:00 05:00 WBC 12.4 H D RBC 4.22 L Hgb 12.7 L Hct 38.0 MCV 90 MCH 30.0 MCHC 33.4 RDW 12.5 Plt Count 307 Seg Neutrophils % Not Reportable Sodium 136.0 L Potassium 5.5 H Chloride 103 Carbon Dioxide 20 L Anion Gap 13 BUN 45 H Creatinine 1.49 H Est GFR ( Amer) 56 L Glucose 135 H Calcium 10.1 02/12/20 20:45 Clean Catch Midstream Urine Culture - Final NO GROWTH 2 DAYS Impressions: Chest X-Ray 02/12/20 17:00 IMPRESSION: Limited left lower lobe pneumonia. Chest CT 02/12/20 19:54 IMPRESSION: Patchy areas of interstitial alveolar space disease bilaterally, presumed infectious inflammatory. Imaging features can be seen with COVID pneumonia, though are nonspecific and can occur with a variety of infectious and noninfectious processes. [PneInd]. Lung Scan-VQ NM 02/12/20 19:54 IMPRESSION: NORMAL PERFUSION LUNG SCAN. Assessment & Plan - Diagnosis (1) Pneumonia due to 2019 novel coronavirus Is this a current diagnosis for this admission?: Yes Plan: Continues the current medical management including the IV antibiotic antiviral drugs (2) COVID-19 Is this a current diagnosis for this admission?: Yes (3) Chronic kidney disease Qualifiers: Chronic kidney disease stage: stage 3 (moderate) Is this a current diagnosis for this admission?: Yes Plan: Low potassium diet discontinues the IV fluid (4) Hypertension Qualifiers: Hypertension type: essential hypertension Qualified Code(s): I10 - Essential (primary) hypertension Is this a current diagnosis for this admission?: Yes (5) Impaired fasting glucose Is this a current diagnosis for this admission?: Yes (6) Cough Is this a current diagnosis for this admission?: Yes (7) Shortness of breath Is this a current diagnosis for this admission?: Yes - Time Time Spent with patient: 15-24 minutes Level of Care: IMCU Medications reviewed and adjusted accordingly: Yes Anticipated discharge: Home Anticipated DC Timeframe: within 72 hours - Plan Summary Plan Summary: Continues to current medications low potassium diet repeat the chest x-ray and blood work in the morning encourage the patient's to walk in room sit in the chair patient is otherwise currently fair
[2020-02-14] MEDS: REMDESIVIR (EUA) 100 MG in NORMAL SALINE 250 ML IV SCH (10:33)
--- NOTE | 2020-02-14 11:50 | RADIOLOGY REPORT (SQ) ---
EXAM DESCRIPTION: CHEST SINGLE VIEW IMAGES COMPLETED DATE/TIME: 02/14/2020 11:37 am REASON FOR STUDY: covid pnemonia COMPARISON: 02/12/2020 EXAM PARAMETERS: NUMBER OF VIEWS: One view. TECHNIQUE: Single frontal radiographic view of the chest acquired. RADIATION DOSE: NA LIMITATIONS: None. FINDINGS: LUNGS AND PLEURA: Persistent airspace disease in the left base. Lung coppola are otherwise course with clear. MEDIASTINUM AND HILAR STRUCTURES: No masses. Contour normal. HEART AND VASCULAR STRUCTURES: Heart normal in size. Normal vasculature. BONES: No acute findings. HARDWARE: None in the chest. OTHER: No other significant finding. IMPRESSION: Persistent left lower lobe airspace disease. TECHNICAL DOCUMENTATION: JOB ID: [id number] 2010 [employer]- All Rights Reserved Reading location - IP/workstation name: [email or web address]
[2020-02-14 12:23] LABS: ARTERIAL BLOOD BASE EXCESS -3.7 mmol/L; ARTERIAL BLOOD H2CO3 1.03 mmol/L (1.05-1.35); ARTERIAL BLOOD HCO3 20.4 mmol/L (20-24); ARTERIAL BLOOD O2 SATURATION 94.7 % (94-98); ARTERIAL BLOOD PCO2 34.2 mmHg (35-45); ARTERIAL BLOOD PH 7.39 (7.35-7.45); ARTERIAL BLOOD PO2 72.8 mmHg (80-100); ARTERIAL BLOOD TOTAL CO2 21.5 mmol/L (23-27)
[2020-02-14 12:35] LABS: ARTERIAL BLOOD FIO2 ROOM AIR
[2020-02-14] MEDS: AZITHROMYCIN 250 MG in DEXTROSE 5%-WATER 250 ML IV SCH (17:28)
[2020-02-14] MEDS ORDERED: BENZOCAINE/MENTHOL SORE THROAT LOZENGE BUCCAL PRN (17:52)
[2020-02-14] MEDS ORDERED: AZITHROMYCIN 250 MG in DEXTROSE 5%-WATER 250 ML IV SCH (18:00)
[2020-02-14] MEDS: LATANOPROST 0.005% OPH SOLN 2.5 ML OP SCH (21:46)
[2020-02-14] MEDS: ATORVASTATIN CALCIUM 20 MG TABLET PO SCH (21:46)
[2020-02-15 05:26] LABS: HEMATOCRIT 37.2 % (37.9-51.0); HEMOGLOBIN 12.3 g/dL (13.5-17.0); MEAN CORPUSCULAR HEMOGLOBIN 30.1 pg (27.0-33.4); MEAN CORPUSCULAR VOLUME 91 fl (80-97); PLATELET COUNT 368 10^3/uL (150-450); RED BLOOD COUNT 4.09 10^6/uL (4.35-5.55); RED CELL DISTRIBUTION WIDTH 12.6 % (11.5-14.0); WHITE BLOOD COUNT 14.7 10^3/uL (4.0-10.5)
[2020-02-15 05:52] LABS: ALBUMIN 3.7 g/dL (3.5-5.0); ALKALINE PHOSPHATASE 59 U/L (38-126); ANION GAP 10 (5-19); ASPARTATE AMINO TRANSFERASE 52 U/L (17-59); BILIRUBIN,DIRECT 0.2 mg/dL (0.0-0.4); BILIRUBIN,TOTAL 0.8 mg/dL (0.2-1.3); BLOOD UREA NITROGEN 41 mg/dL (7-20); C-REACTIVE PROTEIN 27.1 mg/L (<10.0); CARBON DIOXIDE 21 mmol/L (22-30); CHLORIDE 105 mmol/L (98-107); GLUCOSE 135 mg/dL (75-110); POTASSIUM 5.7 mmol/L (3.6-5.0); TOTAL PROTEIN 7.1 g/dL (6.3-8.2)
[2020-02-15 05:55] LABS: ABSOLUTE LYMPHOCYTES# (MANUAL) 0.4 10^3/uL (0.5-4.7); ABSOLUTE MONOCYTES # (MANUAL) 0.6 10^3/uL (0.1-1.4); BAND NEUTROPHILS % (MANUAL) 1 % (3-5); BASOPHILS % (MANUAL) 0 % (0-2); EOSINOPHILS % (MANUAL) 0 % (0-6); LYMPHOCYTES % (MANUAL) 3 % (13-45); MONOCYTES % (MANUAL) 4 % (3-13); SEGMENTED NEUTROPHILS % (MAN) 92 % (42-78); TOTAL CELLS COUNTED 100
[2020-02-15 05:56] LABS: BURR CELLS SLIGHT; OVALOCYTES SLIGHT; PLATELET COMMENT ADEQUATE; POIKILOCYTOSIS SLIGHT; TEAR DROP CELLS SLIGHT; TOXIC GRANULATION 1+; TOXIC VACUOLATION PRESENT
[2020-02-15] MEDS: HEPARIN SOD (PORCINE) 5,000 UNIT/ML 1 ML VIAL SUBCUT SCH ×3 (06:06→23:45)
[2020-02-15] MEDS: PANTOPRAZOLE SODIUM 40 MG TABLET.DR PO SCH (06:06)
--- NOTE | 2020-02-15 09:25 | PDOC PROGRESS REPORT ---
Subjective Progress Note for:: 02/15/20 Subjective:: Patient is feeling much better Denied any chest pain no short of breath Patient's white count is elevated most likely from the steroid patient having no fever No abdominal pain no nausea no vomiting Patient's walk in the room without any problems Reason For Visit: COVID PNEUMONIA Physical Exam Vital Signs: Temp Pulse Resp BP Pulse Ox 97.7 F 66 18 128/71 H 100 02/15/20 03:59 02/15/20 07:00 02/15/20 03:59 02/15/20 03:59 02/15/20 03:59 Intake & Output 02/14/20 02/15/20 02/16/20 06:59 06:59 06:59 Intake Total 850 1000 Output Total 400 575 Balance 450 425 Weight 77.5 kg 77 kg General appearance: PRESENT: no acute distress Musculoskeletal exam: PRESENT: ambulatory Neurological exam: PRESENT: alert, awake, oriented to person, oriented to place, oriented to time, oriented to situation Results Laboratory Results: 02/15/20 04:18 02/15/20 04:18 02/14/20 02/15/20 02/15/20 11:43 04:18 04:18 WBC 14.7 H RBC 4.09 L Hgb 12.3 L Hct 37.2 L MCV 91 MCH 30.1 MCHC 33.0 RDW 12.6 Plt Count 368 Seg Neutrophils % Not Reportable Carbonic Acid 1.03 L HCO3/H2CO3 Ratio 19:1 ABG pH 7.39 ABG pCO2 34.2 L ABG pO2 72.8 L ABG HCO3 20.4 ABG O2 Saturation 94.7 ABG Base Excess -3.7 FiO2 ROOM AIR Sodium 135.9 L Potassium 5.7 H Chloride 105 Carbon Dioxide 21 L Anion Gap 10 BUN 41 H Creatinine 1.39 H Est GFR ( Amer) > 60 Glucose 135 H Calcium 10.0 Total Bilirubin 0.8 AST 52 Alkaline Phosphatase 59 C-Reactive Protein 27.1 H Total Protein 7.1 Albumin 3.7 02/12/20 21:35 Throat Throat Culture - Final NORMAL VICTOR HUGO 02/12/20 20:45 Clean Catch Midstream Urine Culture - Final NO GROWTH 2 DAYS Impressions: Chest CT 02/12/20 19:54 IMPRESSION: Patchy areas of interstitial alveolar space disease bilaterally, presumed infectious inflammatory. Imaging features can be seen with COVID pneumonia, though are nonspecific and can occur with a variety of infectious and noninfectious processes. [PneInd]. Lung Scan-VQ NM 02/12/20 19:54 IMPRESSION: NORMAL PERFUSION LUNG SCAN. Chest X-Ray 02/14/20 00:00 IMPRESSION: Persistent left lower lobe airspace disease. Assessment & Plan - Diagnosis (1) Pneumonia due to 2019 novel coronavirus Is this a current diagnosis for this admission?: Yes Plan: Continues the current medications (2) COVID-19 Is this a current diagnosis for this admission?: Yes (3) Chronic kidney disease Qualifiers: Chronic kidney disease stage: stage 3 (moderate) Is this a current diagnosis for this admission?: Yes Plan: Low potassium diet discontinues the IV fluid (4) Hypertension Qualifiers: Hypertension type: essential hypertension Qualified Code(s): I10 - Essential (primary) hypertension Is this a current diagnosis for this admission?: Yes (5) Impaired fasting glucose Is this a current diagnosis for this admission?: Yes (6) Cough Is this a current diagnosis for this admission?: Yes (7) Shortness of breath Is this a current diagnosis for this admission?: Yes - Time Time Spent with patient: 15-24 minutes Level of Care: IMCU Medications reviewed and adjusted accordingly: Yes Anticipated discharge: Home Anticipated DC Timeframe: within 72 hours - Plan Summary Plan Summary: Continues to current medications
[2020-02-15] MEDS ORDERED: SODIUM POLYSTYRENE SULFONATE 15 GM/60 ML PO ONE (10:00)
[2020-02-15] MEDS: DEXAMETHASONE SOD PHOSPHATE INJ 4 MG/1 ML VIAL IV SCH ×2 (10:27→23:43)
[2020-02-15] MEDS: CETIRIZINE 10 MG TABLET PO SCH (10:27)
[2020-02-15] MEDS: ASPIRIN 81 MG TABLET, ENT COATED PO SCH (10:27)
[2020-02-15] MEDS: CEFEPIME 1 GM/D5W RTU 1 GM/50 ML RTUPB IV SCH ×2 (10:28→23:44)
[2020-02-15] MEDS: REMDESIVIR (EUA) 100 MG in NORMAL SALINE 250 ML IV SCH (11:21)
[2020-02-15] MEDS: AZITHROMYCIN 250 MG in DEXTROSE 5%-WATER 250 ML IV SCH (17:22)
[2020-02-15] MEDS: ATORVASTATIN CALCIUM 20 MG TABLET PO SCH (23:43)
[2020-02-15] MEDS: LATANOPROST 0.005% OPH SOLN 2.5 ML OP SCH (23:45)
[2020-02-16] MEDS: PANTOPRAZOLE SODIUM 40 MG TABLET.DR PO SCH (05:32)
[2020-02-16] MEDS: HEPARIN SOD (PORCINE) 5,000 UNIT/ML 1 ML VIAL SUBCUT SCH ×3 (05:32→21:40)
[2020-02-16 05:39] LABS: HEMATOCRIT 36.8 % (37.9-51.0); HEMOGLOBIN 12.2 g/dL (13.5-17.0); MEAN CORPUSCULAR HEMOGLOBIN 29.8 pg (27.0-33.4); MEAN CORPUSCULAR HGB CONC 33.1 g/dL (32.0-36.0); MEAN CORPUSCULAR VOLUME 90 fl (80-97); PLATELET COUNT 362 10^3/uL (150-450); RED BLOOD COUNT 4.09 10^6/uL (4.35-5.55); RED CELL DISTRIBUTION WIDTH 12.7 % (11.5-14.0); WHITE BLOOD COUNT 12.1 10^3/uL (4.0-10.5)
[2020-02-16 05:56] LABS: ANION GAP 10 (5-19); BLOOD UREA NITROGEN 33 mg/dL (7-20); CALCIUM 9.8 mg/dL (8.4-10.2); CARBON DIOXIDE 22 mmol/L (22-30); CHLORIDE 104 mmol/L (98-107); GLUCOSE 136 mg/dL (75-110); POTASSIUM 5.3 mmol/L (3.6-5.0)
[2020-02-16 06:20] LABS: ABSOLUTE LYMPHOCYTES# (MANUAL) 0.7 10^3/uL (0.5-4.7); ABSOLUTE MONOCYTES # (MANUAL) 0.5 10^3/uL (0.1-1.4); BASOPHILS % (MANUAL) 0 % (0-2); EOSINOPHILS % (MANUAL) 0 % (0-6); LYMPHOCYTES % (MANUAL) 6 % (13-45); MONOCYTES % (MANUAL) 4 % (3-13); SEGMENTED NEUTROPHILS % (MAN) 90 % (42-78); TOTAL CELLS COUNTED 100
[2020-02-16 06:21] LABS: PLATELET COMMENT ADEQUATE; RBC MORPHOLOGY COMMENT NORMO-CYTIC/CHROMIC
--- NOTE | 2020-02-16 09:50 | PDOC PROGRESS REPORT ---
Subjective Progress Note for:: 02/16/20 Subjective:: Patient is feeling much better No chest pain no short of breath Is walking the room without any problem Patient is going to finish the antiviral drugs this and hopefully will discharge the patient on a Wednesday Reason For Visit: COVID PNEUMONIA Physical Exam Vital Signs: Temp Pulse Resp BP Pulse Ox 97.5 F 53 L 17 132/84 H 99 02/16/20 03:21 02/16/20 07:00 02/16/20 03:21 02/16/20 03:21 02/16/20 03:21 Intake & Output 02/15/20 02/16/20 02/17/20 06:59 06:59 06:59 Intake Total 1000 1315 Output Total 575 450 Balance 425 865 Weight 77 kg 76.7 kg General appearance: PRESENT: no acute distress Musculoskeletal exam: PRESENT: ambulatory Neurological exam: PRESENT: alert, awake, oriented to person, oriented to place, oriented to time, oriented to situation Results Laboratory Results: 02/16/20 04:53 02/16/20 04:53 02/16/20 02/16/20 04:53 04:53 WBC 12.1 H RBC 4.09 L Hgb 12.2 L Hct 36.8 L MCV 90 MCH 29.8 MCHC 33.1 RDW 12.7 Plt Count 362 Seg Neutrophils % Not Reportable Sodium 136.0 L Potassium 5.3 H Chloride 104 Carbon Dioxide 22 Anion Gap 10 BUN 33 H Creatinine 1.17 Est GFR ( Amer) > 60 Glucose 136 H Calcium 9.8 Impressions: Chest CT 02/12/20 19:54 IMPRESSION: Patchy areas of interstitial alveolar space disease bilaterally, presumed infectious inflammatory. Imaging features can be seen with COVID pneumonia, though are nonspecific and can occur with a variety of infectious and noninfectious processes. [PneInd]. Lung Scan-VQ NM 02/12/20 19:54 IMPRESSION: NORMAL PERFUSION LUNG SCAN. Chest X-Ray 02/14/20 00:00 IMPRESSION: Persistent left lower lobe airspace disease. Assessment & Plan - Diagnosis (1) Pneumonia due to 2019 novel coronavirus Is this a current diagnosis for this admission?: Yes (2) COVID-19 Is this a current diagnosis for this admission?: Yes (3) Chronic kidney disease Qualifiers: Chronic kidney disease stage: stage 3 (moderate) Is this a current diagnosis for this admission?: Yes (4) Hypertension Qualifiers: Hypertension type: essential hypertension Qualified Code(s): I10 - Essential (primary) hypertension Is this a current diagnosis for this admission?: Yes (5) Impaired fasting glucose Is this a current diagnosis for this admission?: Yes (6) Cough Is this a current diagnosis for this admission?: Yes (7) Shortness of breath Is this a current diagnosis for this admission?: Yes - Time Time Spent with patient: 15-24 minutes Level of Care: IMCU Medications reviewed and adjusted accordingly: Yes Anticipated discharge: Home Anticipated DC Timeframe: within 48 hours - Plan Summary Plan Summary: Patient is currently doing much better hopefully will finish the all this antiviral drugs and a steroid this and hopefully discharge in a Wednesday if remains stable
[2020-02-16] MEDS: CETIRIZINE 10 MG TABLET PO SCH (10:14)
[2020-02-16] MEDS: DEXAMETHASONE SOD PHOSPHATE INJ 4 MG/1 ML VIAL IV SCH ×2 (10:14→21:40)
[2020-02-16] MEDS: ASPIRIN 81 MG TABLET, ENT COATED PO SCH (10:14)
[2020-02-16] MEDS: CEFEPIME 1 GM/D5W RTU 1 GM/50 ML RTUPB IV SCH ×2 (10:14→21:41)
[2020-02-16] MEDS: REMDESIVIR (EUA) 100 MG in NORMAL SALINE 250 ML IV SCH (11:09)
[2020-02-16] MEDS: AZITHROMYCIN 250 MG TABLET PO SCH (18:46)
[2020-02-16] MEDS: LATANOPROST 0.005% OPH SOLN 2.5 ML OP SCH (21:40)
[2020-02-16] MEDS: ATORVASTATIN CALCIUM 20 MG TABLET PO SCH (21:40)
[2020-02-17] MEDS: HEPARIN SOD (PORCINE) 5,000 UNIT/ML 1 ML VIAL SUBCUT SCH ×3 (06:06→21:16)
[2020-02-17] MEDS: PANTOPRAZOLE SODIUM 40 MG TABLET.DR PO SCH (06:06)
[2020-02-17] MEDS: DEXAMETHASONE SOD PHOSPHATE INJ 4 MG/1 ML VIAL IV SCH ×2 (09:36→21:16)
[2020-02-17] MEDS: CETIRIZINE 10 MG TABLET PO SCH (09:36)
[2020-02-17] MEDS: CEFEPIME 1 GM/D5W RTU 1 GM/50 ML RTUPB IV SCH ×2 (09:36→21:17)
[2020-02-17] MEDS: ASPIRIN 81 MG TABLET, ENT COATED PO SCH (09:36)
[2020-02-17] MEDS: REMDESIVIR (EUA) 100 MG in NORMAL SALINE 250 ML IV SCH (10:50)
--- NOTE | 2020-02-17 13:20 | PDOC PROGRESS REPORT ---
Subjective Progress Note for:: 02/17/20 Subjective:: Patient seen by the bedside, he was admitted for the management of Covid pneumonia,, he has no new complaint today, presently on remdesivir, he will finish total course this , plan for discharge on Wednesday. Reason For Visit: COVID PNEUMONIA Physical Exam Vital Signs: Temp Pulse Resp BP Pulse Ox 97.7 F 68 17 137/75 H 100 02/17/20 11:05 02/17/20 11:05 02/17/20 11:05 02/17/20 11:05 02/17/20 11:05 Intake & Output 02/16/20 02/17/20 02/18/20 06:59 06:59 05:59 Intake Total 1315 1540 410 Output Total 450 1600 550 Balance 865 -60 -140 Weight 76.7 kg 76.4 kg General appearance: PRESENT: no acute distress Eye exam: PRESENT: PERRLA Respiratory exam: PRESENT: clear to auscultation peng Cardiovascular exam: PRESENT: +S1, +S2 GI/Abdominal exam: PRESENT: soft Neurological exam: PRESENT: alert Results Laboratory Results: 02/16/20 04:53 02/16/20 04:53 Impressions: Chest CT 02/12/20 19:54 IMPRESSION: Patchy areas of interstitial alveolar space disease bilaterally, presumed infectious inflammatory. Imaging features can be seen with COVID pneumonia, though are nonspecific and can occur with a variety of infectious and noninfectious processes. [PneInd]. Lung Scan-VQ NM 02/12/20 19:54 IMPRESSION: NORMAL PERFUSION LUNG SCAN. Chest X-Ray 02/14/20 00:00 IMPRESSION: Persistent left lower lobe airspace disease. Assessment & Plan - Diagnosis (1) Pneumonia due to COVID-19 virus Is this a current diagnosis for this admission?: Yes Plan: Patient will continue remdesivir (2) Pneumonia Is this a current diagnosis for this admission?: Yes - Time Time Spent with patient: 25-34 minutes Level of Care: IMCU Medications reviewed and adjusted accordingly: Yes Anticipated discharge: Home - Inpatient Certification Based on my medical assessment, after consideration of the patient's comorbidities, presenting symptoms, or acuity I expect that the services needed warrant INPATIENT care.: Yes I certify that my determination is in accordance with my understanding of Medicare's requirements for reasonable and necessary INPATIENT services [42 CFR 412.3e].: Yes
[2020-02-17] MEDS: AZITHROMYCIN 250 MG TABLET PO SCH (17:35)
[2020-02-17] MEDS: ATORVASTATIN CALCIUM 20 MG TABLET PO SCH (21:16)
[2020-02-17] MEDS: LATANOPROST 0.005% OPH SOLN 2.5 ML OP SCH (21:35)
[2020-02-17] MEDS: BENZONATATE 100 MG CAPSULE PO PRN (21:35)
[2020-02-18] MEDS: HEPARIN SOD (PORCINE) 5,000 UNIT/ML 1 ML VIAL SUBCUT SCH ×3 (05:55→21:48)
[2020-02-18] MEDS: PANTOPRAZOLE SODIUM 40 MG TABLET.DR PO SCH (05:56)
[2020-02-18] MEDS: CEFEPIME 1 GM/D5W RTU 1 GM/50 ML RTUPB IV SCH ×2 (09:28→21:41)
[2020-02-18] MEDS: ASPIRIN 81 MG TABLET, ENT COATED PO SCH (09:32)
[2020-02-18] MEDS: CETIRIZINE 10 MG TABLET PO SCH (09:32)
[2020-02-18] MEDS: DEXAMETHASONE SOD PHOSPHATE INJ 4 MG/1 ML VIAL IV SCH ×2 (09:32→21:43)
--- NOTE | 2020-02-18 13:08 | PDOC PROGRESS REPORT ---
Subjective Progress Note for:: 02/18/20 Subjective:: Patient seen by the bedside, he was admitted for the management of Covid pneumonia,, he has no new complaint today, presently on remdesivir, he will finish total course this , plan for discharge on Wednesday. Reason For Visit: COVID PNEUMONIA Physical Exam Vital Signs: Temp Pulse Resp BP Pulse Ox 97.8 F 62 18 109/84 100 02/18/20 11:39 02/18/20 11:39 02/18/20 11:39 02/18/20 11:39 02/18/20 11:39 Intake & Output 02/17/20 02/18/20 02/19/20 07:59 06:59 06:59 Intake Total 510 Output Total 100 Balance 410 Weight General appearance: PRESENT: no acute distress Eye exam: PRESENT: PERRLA Respiratory exam: PRESENT: clear to auscultation peng Cardiovascular exam: PRESENT: +S1, +S2 GI/Abdominal exam: PRESENT: soft Neurological exam: PRESENT: alert Results Laboratory Results: 02/16/20 04:53 02/16/20 04:53 02/12/20 21:19 Blood Blood Culture - Final NO GROWTH IN 5 DAYS 02/12/20 20:45 Blood Blood Culture - Final NO GROWTH IN 5 DAYS Impressions: Chest CT 02/12/20 19:54 IMPRESSION: Patchy areas of interstitial alveolar space disease bilaterally, presumed infectious inflammatory. Imaging features can be seen with COVID pneumonia, though are nonspecific and can occur with a variety of infectious and noninfectious processes. [PneInd]. Lung Scan-VQ NM 02/12/20 19:54 IMPRESSION: NORMAL PERFUSION LUNG SCAN. Chest X-Ray 02/14/20 00:00 IMPRESSION: Persistent left lower lobe airspace disease. Assessment & Plan - Diagnosis (1) Pneumonia due to COVID-19 virus Is this a current diagnosis for this admission?: Yes Plan: Patient will continue remdesivir (2) Pneumonia Is this a current diagnosis for this admission?: Yes - Time Time Spent with patient: 25-34 minutes Level of Care: IMCU Medications reviewed and adjusted accordingly: Yes Anticipated discharge: Home Anticipated DC Timeframe: within 24 hours
[2020-02-18] MEDS: BENZONATATE 100 MG CAPSULE PO PRN (14:52)
[2020-02-18] MEDS: AZITHROMYCIN 250 MG TABLET PO SCH (17:37)
[2020-02-18] MEDS: ATORVASTATIN CALCIUM 20 MG TABLET PO SCH (21:41)
[2020-02-18] MEDS: LATANOPROST 0.005% OPH SOLN 2.5 ML OP SCH (21:47)
[2020-02-19] MEDS: HEPARIN SOD (PORCINE) 5,000 UNIT/ML 1 ML VIAL SUBCUT SCH (06:12)
[2020-02-19] MEDS: PANTOPRAZOLE SODIUM 40 MG TABLET.DR PO SCH (06:13)
[2020-02-19 08:51] VITALS: BP 144/86
[2020-02-19] MEDS: ASPIRIN 81 MG TABLET, ENT COATED PO SCH (09:16)
[2020-02-19] MEDS: CEFEPIME 1 GM/D5W RTU 1 GM/50 ML RTUPB IV SCH (09:16)
[2020-02-19] MEDS: DEXAMETHASONE SOD PHOSPHATE INJ 4 MG/1 ML VIAL IV SCH (09:16)
[2020-02-19] MEDS: CETIRIZINE 10 MG TABLET PO SCH (09:16)
--- NOTE | 2020-02-19 13:32 | PDOC DISCHARGE SUMMARY ---
Impression - Admit/DC Date/PCP Admission Date/Primary Care Provider: 02/12/20 20:04 JOSEPH LEMONS MD Discharge Date: 02/19/20 - Discharge Diagnosis (1) Pneumonia due to 2019 novel coronavirus Is this a current diagnosis for this admission?: Yes (2) COVID-19 Is this a current diagnosis for this admission?: Yes (3) Chronic kidney disease Is this a current diagnosis for this admission?: Yes (4) Hypertension Is this a current diagnosis for this admission?: Yes (5) Impaired fasting glucose Is this a current diagnosis for this admission?: Yes (6) Cough Is this a current diagnosis for this admission?: Yes (7) Shortness of breath Is this a current diagnosis for this admission?: Yes - Additional Information Discharge Diet: As Tolerated Discharge Activity: Activity As Tolerated Referrals: JOSEPH LEMONS MD [Primary Care Provider] - Follow up as needed (f/u in 10 days ) Prescriptions: Prednisone [Deltasone 20 mg Tablet] 20 mg PO DAILY #4 tablet Doxycycline Hyclate 100 mg PO BID #14 tablet. Benzopanchito [Tessalon Perles 100 mg Capsule] 100 mg PO Q8HP PRN #21 capsule PRN Reason: Home Medications: Aspirin [Ecotrin 81 mg EC Tablet] 81 mg PO DAILY 02/12/20 Atorvastatin Calcium [Lipitor 20 mg Tablet] 20 mg PO QHS 02/12/20 Celecoxib [Celebrex 200 mg Capsule] 200 mg PO DAILYP PRN 02/12/20 Cetirizine HCl [Zyrtec 10 mg Tablet] 10 mg PO DAILY 02/12/20 Dorzolamide HCl/Timolol Maleat [Cosopt Oph Soln 10 ml] 1 drop OU BID 02/12/20 Latanoprost [Xalatan 0.005% Oph Soln 2.5 ml] 1 drop OS QHS 02/12/20 Omeprazole 20 mg PO DAILY 02/12/20 Polyvinyl Alcohol/Povidone/Pf [Refresh Classic Eye Drops] 1 drop OU BID 02/12/20 Tamsulosin HCl [Flomax 0.4 mg Cap.sr] 0.4 mg PO DAILY 02/12/20 Benzonatate [Tessalon Perles 100 mg Capsule] 100 mg PO Q8HP PRN #21 capsule 02/19/20 Doxycycline Hyclate 100 mg PO BID #14 tablet. 02/19/20 Prednisone [Deltasone 20 mg Tablet] 20 mg PO DAILY #4 tablet 02/19/20 History of Present Illiness History of Present Illness: NERY DUENAS is a 74 year old male Is a 74-year-old male recently diagnosed with COVID-19 3 days back noticed progressively increase the more weakness and increasing more cough and shortness of the breath patient is brought to the emergency department by ambulance In the ER patient chest x-ray consistent with a pneumonia CT scan of the chest confirmed with the Covid pneumonia and patient PO2 was 77.9 and the patient at this point put on oxygen and admitting in the hospital Patient received the steroid and IV antibiotic When I saw the patient in the Covid floor patient is feeling much better patient's denied any chest pain no shortness of the breath Still having some cough Patient denied any fever no chills Patient all inflammatory marker is elevated Hospital Course Hospital Course: This 74-year-old male was basically diagnosed with the Covid came to the emergency room with a shortness of the breath and weakness patient start with the antiviral drugs antibiotics and a steroid Patient's responds very well patient's having no more oxygen require patient is finished the Zithromax antiviral drugs and 8-day course of the dexamethasone Patient's Feeling much better no issue with oxygenation's no chest pain no short of breath no fever no chills At this point patient's oxygen is 99% on room air walk in the hallway without any problems patient's p.o. intake is good Since discharge with the doxycycline and oral steroid DISCUSS with the patient and the patient's regarding the patient's current conditions continues to monitor any increasing any shortness of the breath any fever any chills following the ER Physical Exam Vital Signs: Temp Pulse Resp BP Pulse Ox 97.8 F 72 18 144/86 H 100 02/19/20 11:56 02/19/20 11:56 02/19/20 11:56 02/19/20 11:56 02/19/20 11:56 Intake & Output 02/18/20 02/19/20 02/20/20 06:59 06:59 06:59 Intake Total 920 50 Output Total 1570 Balance -650 50 Weight 76.3 kg General appearance: PRESENT: no acute distress, well-developed, well-nourished Head exam: PRESENT: atraumatic, normocephalic Eye exam: PRESENT: conjunctiva pink, EOMI, PERRLA. ABSENT: scleral icterus Ear exam: PRESENT: normal external ear exam Mouth exam: PRESENT: moist, tongue midline Neck exam: ABSENT: carotid bruit, JVD, lymphadenopathy, thyromegaly Respiratory exam: PRESENT: clear to auscultation peng. ABSENT: rales, rhonchi, wheezes Cardiovascular exam: PRESENT: RRR. ABSENT: diastolic murmur, rubs, systolic murmur Pulses: PRESENT: normal dorsalis pedis pul Vascular exam: PRESENT: normal capillary refill GI/Abdominal exam: PRESENT: normal bowel sounds, soft. ABSENT: distended, guarding, mass, organolmegaly, rebound, tenderness Rectal exam: PRESENT: deferred Extremities exam: PRESENT: full ROM. ABSENT: calf tenderness, clubbing, pedal edema Neurological exam: PRESENT: alert, awake, oriented to person, oriented to place, oriented to time, oriented to situation, CN II-XII grossly intact. ABSENT: motor sensory deficit Psychiatric exam: PRESENT: appropriate affect, normal mood. ABSENT: homicidal ideation, suicidal ideation Skin exam: PRESENT: dry, intact, warm. ABSENT: cyanosis, rash Results Laboratory Results: WBC 12.1 10^3/uL (4.0-10.5) H 02/16/20 04:53 RBC 4.09 10^6/uL (4.35-5.55) L 02/16/20 04:53 Hgb 12.2 g/dL (13.5-17.0) L 02/16/20 04:53 Hct 36.8 % (37.9-51.0) L 02/16/20 04:53 MCV 90 fl (80-97) 02/16/20 04:53 MCH 29.8 pg (27.0-33.4) 02/16/20 04:53 MCHC 33.1 g/dL (32.0-36.0) 02/16/20 04:53 RDW 12.7 % (11.5-14.0) 02/16/20 04:53 Plt Count 362 10^3/uL (150-450) 02/16/20 04:53 Lymph % (Auto) Not Reportable 02/16/20 04:53 [place] % (Auto) Not Reportable 02/16/20 04:53 Eos % (Auto) Not Reportable 02/16/20 04:53 Baso % (Auto) Not Reportable 02/16/20 04:53 Absolute Neuts (auto) Not Reportable 02/16/20 04:53 Absolute Lymphs (auto) Not Reportable 02/16/20 04:53 Absolute Monos (auto) Not Reportable 02/16/20 04:53 Absolute Eos (auto) Not Reportable 02/16/20 04:53 Absolute Basos (auto) Not Reportable 02/16/20 04:53 Total Counted 100 02/16/20 04:53 Seg Neutrophils % Not Reportable 02/16/20 04:53 Seg Neuts % (Manual) 90 % (42-78) H 02/16/20 04:53 Band Neutrophils % 1 % (3-5) L 02/15/20 04:18 Lymphocytes % (Manual) 6 % (13-45) L 02/16/20 04:53 Monocytes % (Manual) 4 % (3-13) 02/16/20 04:53 Eosinophils % (Manual) 0 % (0-6) 02/16/20 04:53 Basophils % (Manual) 0 % (0-2) 02/16/20 04:53 Abs Neuts (Manual) 10.9 10^3/uL (1.7-8.2) H 02/16/20 04:53 Abs Lymphs (Manual) 0.7 10^3/uL (0.5-4.7) 02/16/20 04:53 Abs Monocytes (Manual) 0.5 10^3/uL (0.1-1.4) 02/16/20 04:53 Absolute Eos (Manual) 0.0 10^3/uL (0.0-0.6) 02/16/20 04:53 Abs Basophils (Manual) 0.0 10^3/uL (0.0-0.2) 02/16/20 04:53 Toxic Granulation 1+ 02/15/20 04:18 Toxic Vacuolation PRESENT 02/15/20 04:18 Platelet Comment ADEQUATE 02/16/20 04:53 Poikilocytosis SLIGHT 02/15/20 04:18 Tear Drop Cells SLIGHT 02/15/20 04:18 Ovalocytes SLIGHT 02/15/20 04:18 Adrián Cells SLIGHT 02/15/20 04:18 Schistocytes SLIGHT 02/14/20 05:00 RBC Morph Comment NORMO-CYTIC/CHROMIC 02/16/20 04:53 PT 14.1 SEC (11.4-15.4) 02/12/20 15:19 INR 1.07 02/12/20 15:19 Fibrinogen 766 mg/dL (209-497) H 02/12/20 15:19 D-Dimer 3.07 ug/mL (0.00-0.50) H 02/12/20 15:19 Carbonic Acid 1.03 mmol/L (1.05-1.35) L 02/14/20 11:43 HCO3/H2CO3 Ratio 19:1 02/14/20 11:43 ABG pH 7.39 (7.35-7.45) 02/14/20 11:43 ABG pCO2 34.2 mmHg (35-45) L 02/14/20 11:43 ABG pO2 72.8 mmHg (80-100) L 02/14/20 11:43 ABG HCO3 20.4 mmol/L (20-24) 02/14/20 11:43 ABG Total CO2 21.5 mmol/L (23-27) L 02/14/20 11:43 ABG O2 Saturation 94.7 % (94-98) 02/14/20 11:43 ABG Base Excess -3.7 mmol/L 02/14/20 11:43 FiO2 ROOM AIR 02/14/20 11:43 Sodium 136.0 mmol/L (137-145) L 02/16/20 04:53 Potassium 5.3 mmol/L (3.6-5.0) H 02/16/20 04:53 Chloride 104 mmol/L (98-107) 02/16/20 04:53 Carbon Dioxide 22 mmol/L (22-30) 02/16/20 04:53 Anion Gap 10 (5-19) 02/16/20 04:53 BUN 33 mg/dL (7-20) H 02/16/20 04:53 Creatinine 1.17 mg/dL (0.52-1.25) 02/16/20 04:53 Est GFR ( Amer) > 60 (>60) 02/16/20 04:53 Est GFR (MDRD) Non-Af > 60 (>60) 02/16/20 04:53 Glucose 136 mg/dL (75-110) H 02/16/20 04:53 Calcium 9.8 mg/dL (8.4-10.2) 02/16/20 04:53 Ferritin 1600.00 ng/mL (17.9-464.0) H 02/12/20 15:19 Total Bilirubin 0.8 mg/dL (0.2-1.3) 02/15/20 04:18 Direct Bilirubin 0.2 mg/dL (0.0-0.4) 02/15/20 04:18 Neonat Total Bilirubin Not Reportable 02/15/20 04:18 Neonat Direct Bilirubin Not Reportable 02/15/20 04:18 Neonat Indirect Bili Not Reportable 02/15/20 04:18 AST 52 U/L (17-59) 02/15/20 04:18 ALT 55 U/L (<50) H 02/15/20 04:18 Alkaline Phosphatase 59 U/L (38-126) 02/15/20 04:18 C-Reactive Protein 27.1 mg/L (<10.0) H 02/15/20 04:18 Total Protein 7.1 g/dL (6.3-8.2) 02/15/20 04:18 Albumin 3.7 g/dL (3.5-5.0) 02/15/20 04:18 Influenza A (Rapid) NEGATIVE (NEGATIVE) 02/12/20 21:35 Influenza B (Rapid) NEGATIVE (NEGATIVE) 02/12/20 21:35 Group A Strep Rapid NEGATIVE (NEGATIVE) 02/12/20 21:35 Impressions: Chest X-Ray 02/12/20 17:00 IMPRESSION: Limited left lower lobe pneumonia. Chest CT 02/12/20 19:54 IMPRESSION: Patchy areas of interstitial alveolar space disease bilaterally, presumed infectious inflammatory. Imaging features can be seen with COVID pneumonia, though are nonspecific and can occur with a variety of infectious and noninfectious processes. [PneInd]. Lung Scan-VQ NM 02/12/20 19:54 IMPRESSION: NORMAL PERFUSION LUNG SCAN. Chest X-Ray 02/14/20 00:00 IMPRESSION: Persistent left lower lobe airspace disease. Plan Time Spent: Greater than 30 Minutes - Follow in office 1 week Stroke Is this a Stroke Patient?: No Acute Heart Failure Is this a Heart Failure Patient?: No
== END 2020-02-19 13:10 | disposition home or self-care (01) | DRG 177 ==
LOC: ER 14:21 → EH 20:04 → 3N 22:30
PROVIDERS: ADMIT Family Medicine; ATTEND Family Medicine
PROC: XW033E5 Introduction of Remdesivir Anti-infective into Peripheral Vein, Percutaneous Approach, New Technology Group 5 (ICD-10-PCS; principal; 2020-02-13)
PROC: XW033E5 Introduction of Remdesivir Anti-infective into Peripheral Vein, Percutaneous Approach, New Technology Group 5 (ICD-10-PCS; 2020-02-17)
DX: U07.1 COVID-19 (principal); J12.89 Other viral pneumonia; I12.9 Hypertensive chronic kidney disease with stage 1 through stage 4 chronic kidney disease, or unspecified chronic kidney disease; R73.01 Impaired fasting glucose; N18.30 Chronic kidney disease, stage 3 unspecified; Z87.891 Personal history of nicotine dependence; Z79.82 Long term (current) use of aspirin; Z79.899 Other long term (current) drug therapy
CPT/HCPCS: 36415; 36600; 71045; 71250; 78580; 80048; 80053; 80076; 82728; 82803; 85025; 85379; 85384; 85610; 86140; 87040; 87070; 87086; 87804; 87880; 93005; 93010; 94640; 96374; 99285; A9540; J0456; J0692; J1100; J1644; J2930; J3490; J7050; J7060; Q9969